=== PATIENT | female | born 1925 | race Caucasian/White ===

== ENCOUNTER 2016-11-24 13:28 | Emergency (ER) | payer OTHER, MEDICARE ==
[~2016-11-24] VITALS: Ht 165.1 cm; Wt 54.4 kg
[2016-11-24 13:33] VITALS: BP 171/94
[2016-11-24] MEDS ORDERED: METOPROLOL TAR100 M1 PO (13:51)
[2016-11-24] MEDS ORDERED: NEXIUM40 M1 PO (13:51)
[2016-11-24] MEDS ORDERED: METOPROLOL TART50 M1 PO (13:51)
--- NOTE | 2016-11-24 13:51 | ED GENERAL ADULT ---
History of Present Illness General Chief Complaint: General Adult Stated Complaint: SENT BY [facility] FOR [facility] Source: patient, family, old records Exam Limitations: no limitations Vital Signs & Intake/Output Vital Signs & Intake/Output Vital Signs Date Time Temp Pulse Resp B/P B/P Pulse O2 O2 Flow FiO2 Mean Ox Delivery Rate 11/24 1633 89 18 94 Room Air 11/24 1333 98.2 84 18 171/94 97 Room Air ED Intake and Output 11/25 0000 11/24 1200 Intake Total Output Total Balance Patient 120 lb Weight Allergies Coded Allergies: lactose (UNKNOWN 11/24/16) Reconcile Medications Apixaban (Eliquis) 2.5 MG TABLET 1 TAB PO BID BLOOD THINNER (Reported) Esomeprazole (Nexium) 40 MG CAPSULE.DR 1 CAP PO DAILY GI (Reported) Hydrocodone/Acetaminophen (Vicodin 5-300 MG Tablet) 5 MG-300 MG TABLET 0.5-1 TAB PO Q6HR PRN pain Metoprolol Tartrate 100 MG TABLET 1 TAB PO DAILY HEART (Reported) Metoprolol Tartrate 50 MG TABLET 1 TAB PO QPM HEART (Reported) Nitrofurantoin Monohyd/M-Cryst (Macrobid 100 MG Capsule) 100 MG CAPSULE 1 CAP PO BID uti with food Tramadol HCl 50 MG TABLET 1 TAB PO BIDP PRN PAIN (Reported) Trazodone HCl 100 MG TABLET 1 TAB PO QPM PRN SLEEP (Reported) Triage Note: PT TO TRIAGE FROM [facility]. PT STATES THAT SHE WAS HOLDING ONTO CHAIR LAST PM WHEN IT TIPPED AND SLAMMED INTO HER AND SHE FELL. HAS PAIN TO L PELVIC AREA. ABLE TO AMBULATE BUT WITH PAIN. DENIES DIZZINESS,CO PRIOR TO FALLING. REFUSES MEDS AT TRIAGE Triage Nurses Notes Reviewed? yes Onset: Evening Duration: day(s): (1) Timing: no prior history Injury Environment: home Severity: moderate Severity Numbers: 7 Modifying Factors: Improves With: immobilization. Worsens With: movement. HPI: Patient is an 89-year-old female with history of atrial fibrillation presenting to the emergency department with chief complaint of left hip, left pelvis pain that started last night after she fell. She reports that she got up to the bathroom and tripped and fell and hit the left hip on the chair next to her bed. No head injury. Denies any loss of consciousness. No chest pain or palpitations. Denies abdominal pain. She called her primary care physician this morning who sent her in for x-ray of her hip and pelvis. The primary care physician called her back and told her that the pelvis was fractured and that she should come to the emergency department for evaluation. Patient usually ambulates with a walker without any assistance. Family concerned because she lives alone. Patient denying any numbness or tingling. No urinary incontinence or retention. Denies any back pain. No neck pain. (ARIELLE TALAVERA) Past History Travel History Traveled to [place] past 21 day No Medical History Any Pertinent Medical History? 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 No (ARIELLE TALAVERA) Review of Systems Review of Systems Constitutional: Reports: no symptoms. Comments Review of systems: See HPI, All other systems negative. Constitutional, no chills fever or weight loss HEENT: No visual changes no sore throat no congestion Cardiovascular: No chest pain ,palpitation Skin, no jaundice no rashes Respiratory: No dyspnea cough sputum or hemoptysis GI: No nausea no vomiting : No dysuria No hematuria Muscle skeletal: no back pain, no neck pain, Neurologic: No numbness no confusion Psych: No stress anxiety or depression,. Heme/endocrine: No bruising no bleeding no polyuria or polydipsia Immunology: No splenectomy or history of AIDS (ARIELLE TALAVERA) Physical Exam Physical Exam General Appearance: well developed/nourished, no apparent distress, alert, awake , comfortable Comments: Well-developed well-nourished person in no acute distress HEENT: Normal EENT exam, extraocular motion intact, no nystagmus. Pupils equally round and reactive to light and accommodation. Nose is atraumatic. External auditory canal and Tympanic membranes clear. Pharynx normal. No swelling or edema. Left conjunctiva is slightly injected on the lower lid. Neck: Supple, no lymphadenopathy, normal range of motion without pain or tenderness, no C-spine tenderness. Back: Nontender, no CVA tenderness. Full range of motion Cardiovascular: irRegular rate and rhythms no murmurs rubs or gallops, normal JVP Respiratory: Chest nontender. No respiratory distress.breath sounds clear to auscultation bilaterally Abdomen: Soft, nontender nondistended, no appreciable organomegaly. Normal bowel sounds. No ascites, no rebound or guarding. Extremity: Nonpitting edema in the lower extremities bilaterally, no calf tenderness to palpation, normal and equal pulses. Tender to palpation over the left hip. Able to straight leg raise both legs with some difficulty more so on the right than the left. Neuro: Alert oriented x3, motor sensory normal, patellar reflexes are 2+ bilaterally. Cranial nerves II through XII grossly intact. Skin: No appreciable rash on exposed skin, skin is warm and dry. Psych: Mood and affect is normal, memory and judgment is normal. Core Measures ACS in differential dx? No CVA/TIA Diagnosis: No Severe Sepsis Present: No Septic Shock Present: No (TASHA SCRUGGS,ARIELLE) Progress Differential Diagnoses I considered the following diagnoses in my evaluation of the patient: Hip fracture, pelvis fracture, dehydration, electrolyte abnormality, urinary tract infection Plan of Care: Orders Procedure Date/time Status Add-on Test (ER Only) 11/24 1719 Active URINALYSIS 11/24 1432 Complete TROPONIN LEVEL 11/24 1432 Complete COMPREHENSIVE METABOLIC PANEL 11/24 1432 Complete CBC WITHOUT DIFFERENTIAL 11/24 1432 Complete EKG 11/24 1432 Active PT Evaluate & Treat 11/24 1407 Active Laboratory Tests 11/24/16 1650: Urine Color YEL, Urine Clarity CLEAR, Urine pH 6.5, Ur Specific [place] 1.015, Urine Protein TRACE H, Urine Ketones NEG, Urine Nitrite POS H, Urine Bilirubin NEG, Urine Urobilinogen 1.0, Ur Leukocyte Esterase SMALL H, Ur Microscopic SEDIMENT EXAMINED, Urine RBC 1-3, Urine WBC 5-10 H, Ur Epithelial Cells FEW, Urine Bacteria PACKD H, Urine Hemoglobin TRACE-INTACT, Urine Glucose NEG 11/24/16 1447: Anion Gap 10, Estimated GFR > 60, BUN/Creatinine Ratio 25.7 H, Glucose 106 H, Calcium 8.4, Total Bilirubin 1.0, AST 30, ALT 50, Alkaline Phosphatase 75, Troponin I < 0.01, Total Protein 5.7 L, Albumin 3.3 L, Globulin 2.4, Albumin/ Globulin Ratio 1.4, CBC w Diff NO MAN DIFF REQ, RBC 4.12 L, MCV 84.6, MCH 28.2, RDW 15.4 H, MPV 7.6, Gran % 65.6, Lymphocytes % 22.1, Monocytes % 11.3 H, Eosinophils % 0.5, Basophils % 0.5, Absolute Granulocytes 2.8, Absolute Lymphocytes 0.9 L, Absolute Monocytes 0.5, Absolute Eosinophils 0, Absolute Basophils 0, PUBS MCHC 33.3 Diagnostic Imaging: Viewed by Me: Radiology Read. Discussed w/RAD: Radiology Read. Radiology Impression: PATIENT: MATEUSZ CORDOBA PRESENT AGE: 89 PATIENT ACCOUNT NO: [id number] : [birth year] LOCATION: [email or web address] ORDERING PHYSICIAN: BRENNEN KAYE MD SERVICE DATE: 11/24/16 EXAM TYPE: RAD - XRY-HIP 2-3 VIEWS, LEFT EXAMINATION: XR HIP, LEFT CLINICAL INFORMATION: Trauma. Evaluate for fracture. COMPARISON: 12/25/2013 TECHNIQUE: Two views of the left hip. FINDINGS: Bone density appears diffusely decreased. 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 This is considered the S1 vertebra. Severe degenerative disc space narrowing, osteophyte formation and endplate sclerosis L4-L5 and L5- S1. The osseous pelvic ring is intact. At the left hip, there is mild superomedial joint space narrowing and osteophyte formation. No femoral fracture or femoral subluxation. There is a new, nondisplaced fracture of the left inferior pubic ramus. 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 IMPRESSION: 1. There is an acute, nondisplaced fracture of the left inferior pubic ramus. 2. Chronic, mild osteoarthrosis of the left hip. 3. 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 DICTATED BY: ROSANNA MARQUEZ MD DATE/TIME DICTATED:11/24/161247 INFECTION PREVENTION COORDINATOR:STACY DATE/TIME TRANSCRIBED:05/05/ 17 / 1248 CONFIDENTIAL, DO NOT COPY WITHOUT APPROPRIATE AUTHORIZATION. < Electronically signed in Other Vendor System> SIGNED BY: ROSANNA MARQUEZ MD 11/24/16 1255 Initial ED EKG: afib Comments: Patient was able to ambulate without any assistance with a walker approximately 20 feet. Stable gait. Patient reports that she is in pain but intolerant to. She was informed of all lab work results. Spoke with her primary care physician Dr. Kaye, agreeing to plan were patient goes home, home services were set up for patient. She has a urinary tract infection which she will be treated with an antibiotic. d/w dr harkins. Unable to send urine culture because there was not enough urine provided. (ARIELLE TALAVERA) Departure Departure Time of Disposition: 1721 Disposition: HOME OR SELF CARE Condition: Stable Clinical Impression Primary Impression: Pelvis fracture Qualifiers: Encounter type: initial encounter Pelvic bone location: pubis Sublocation of pubis: unspecified portion of pubis Fracture type: closed Laterality: right Qualified Code: S32.501A - Unspecified fracture of right pubis , initial encounter for closed fracture Secondary Impressions: Urinary tract infection Qualifiers: Urinary tract infection type: site unspecified Hematuria presence: without hematuria Qualified Code: N39.0 - Urinary tract infection, site not specified Referrals: MIKKI JOLLEY,BRENNEN Mclean (PCP/Family) GIOVANNA JOLLEY,AUBREY Duarte Additional Instructions: Follow-up with your primary care physician call to make an appointment. Take Vicodin as prescribed for pain. You can break the tablet in half if needed. Increase fluids. Make sure you take MiraLAX with this pain medication as it can cause constipation. Take Macrobid as prescribed for urinary tract infection. Return for worsening symptoms or concerns. Departure Forms: Customer Survey General Discharge Information Prescriptions: Current Visit Scripts Hydrocodone/Acetaminophen (Vicodin 5-300 MG Tablet) 0.5-1 TAB PO Q6HR PRN pain #15 TAB Nitrofurantoin Monohyd/M-Cryst (Macrobid 100 MG Capsule) 1 CAP PO BID #14 CAP with food (ARIELLE TALAVERA) PA/[employer] Co-Sign Statement Statement: ED Attending supervision documentation- [X] I saw and evaluated the patient. I have also reviewed all the pertinent lab results and diagnostic results. I agree with the findings and the plan of care as documented in the PA's/[employer]'s documentation. [X] I have reviewed the ED Record and agree with the PA's/[employer]'s documentation. [] Additions or exceptions (if any) to the PAs/[employer]'s note and plan are summarized below: [] (JC JOLLEY,STONEY) Critical Care Note Critical Care Note Critical Care Time: non-applicable (TASHA SCRUGGS,ARIELLE)
[2016-11-24] MEDS ORDERED: TRAMADOL HCL50 M1 PO (13:52)
[2016-11-24] MEDS ORDERED: TRAZODONE HCL100 M1 PO (13:52)
[2016-11-24] MEDS ORDERED: ELIQUIS2.5 M1 PO (13:52)
[2016-11-24 14:58] LABS: ABSOLUTE BASOPHIL COUNT 0 /CUMM (0.0-0.2); ABSOLUTE EOSINOPHIL COUNT 0 /CUMM (0.0-0.7); ABSOLUTE GRANULOCYTE CT 2.8 /CUMM (1.4-6.5); ABSOLUTE LYMPH COUNT 0.9 /CUMM (1.2-3.4); ABSOLUTE MONOCYTE COUNT 0.5 /CUMM (0.10-0.60); BASOPHIL % 0.5 % (0.0-2.0); EOSINOPHIL % 0.5 % (0-5); GRANULOCYTE % 65.6 % (42.2-75.2); HEMATOCRIT 34.9 % (37-47); MEAN CORPUSCULAR HGB 28.2 PG (27.0-31.0); MEAN CORPUSCULAR HGB CONC 33.3 G/DL (33.0-37.0); MEAN CORPUSCULAR VOLUME 84.6 FL (81.0-99.0); MEAN PLATELET VOLUME 7.6 FL (7.4-10.4); PLATELET COUNT 164 /CUMM (130-400); RBC DISTRIBUTION WIDTH 15.4 % (11.5-14.5); RED BLOOD CELL CT 4.12 /CUMM (4.20-5.40); WHITE BLOOD CELL COUNT 4.3 /CUMM (4.8-10.8)
[2016-11-24] MEDS ORDERED: MACROBID 100 M100 MG PO (17:25)
[2016-11-24] MEDS ORDERED: VICODIN 5-3001 EACH PO (17:25)
--- NOTE | 2016-11-29 10:11 | NUR ---
11/29 CASE MGMT- CALL TO [facility] TO SEE IF THEY COULD INCREASE SERVICES MESSAGE LEFT WITH MARSHA. PT ALREADY WAS SET UP WITH [facility].
== END 2016-11-24 18:02 ==
LOC: ERH 13:28
PROVIDERS: Physician Assistant
DX: S32.502A Unspecified fracture of left pubis, initial encounter for closed fracture (principal); N39.0 Urinary tract infection, site not specified; I48.91 Unspecified atrial fibrillation; W01.0XXA Fall on same level from slipping, tripping and stumbling without subsequent striking against object, initial encounter; Y93.01 Activity, walking, marching and hiking; Y92.009 Unspecified place in unspecified non-institutional (private) residence as the place of occurrence of the external cause
CPT/HCPCS: 81001; 93005; 93010